=== PATIENT | male | born 1965 | race African-American/Black ===

== ENCOUNTER 2021-10-01 12:47 | Inpatient (IN) | payer OTHER ==
[2021-10-01 14:24] LABS: VENOUS O2 SATURATION 17.9 % (70-80); VENOUS PCO2 55.7 mmHg (38-52); VENOUS PH 7.306 (7.310-7.410)
[2021-10-01 14:25] LABS: BASO % 0.6 % (0-2.0); EOS % 0.4 % (0-4.5); HEMOGLOBIN 11.9 GM/dL (11.7-16.9); LYMPH % 14.9 % (8-40); MCH 25.5 pg (25.7-33.7); MCHC 32.1 g/dl (32.0-35.9); MEAN CELL VOLUME 79.6 fl (80-96); MEAN PLT VOLUME 9.3 fl (7.5-11.1); MONO % 4.4 % (3.8-10.2); NEUT % 79.7 % (42.8-82.8); PLATELET COUNT 217 10^3/uL (134-434); RBC 4.65 M/mm3 (4.00-5.60); RDW 15.8 % (11.9-15.9)
[2021-10-01 14:45] LABS: ALBUMIN 2.8 g/dl (3.4-5.0); BLOOD UREA NITROGEN 28.1 mg/dL (7-18); CALCIUM 9.5 mg/dL (8.5-10.1)
[2021-10-01 14:46] LABS: MAGNESIUM 2.1 mg/dL (1.8-2.4)
[2021-10-01 14:50] LABS: BILIRUBIN,TOTAL 0.8 mg/dL (0.2-1); TOT PROT 7.7 g/dl (6.4-8.2)
[2021-10-01 14:53] LABS: N-TERMINAL BNP 53.3 pg/ml (5-125)
[2021-10-01 14:59] LABS: INR 1.11 (0.83-1.09); PROTHROMBIN TIME (PATIENT) 12.8 SEC (9.7-13.0)
[2021-10-01 15:02] LABS: ACTIVATED PTT 36.2 SECONDS (25.2-36.5)
[2021-10-01] MEDS ORDERED: LACTATED RINGERS SOLUTION 1000 ML INFUS.BAG IV ONE (15:02)
[2021-10-01] MEDS ORDERED: ASPIRIN 81 MG CHEWABLE TABLETS PO ONE (17:54)
[2021-10-01] MEDS ORDERED: ASPIRIN 81 MG CHEWABLE TABLETS ONE (18:00)
[2021-10-01] MEDS ORDERED: SODIUM CHLORIDE 1,000 ML IV SCH (18:30)
[2021-10-01] MEDS ORDERED: ceFAZolin SODIUM 1 GM VIAL ONE (20:13)
[2021-10-01] MEDS ORDERED: amLODIPine BESYLATE 5 MG TABLET (FP) ONE ×2 (20:13→22:57)
[2021-10-01] MEDS: CEFAZOLIN 1 GM in DEXTROSE 5%-WATER - 50 ML IVPB SCH (21:02)
[2021-10-01] MEDS: INSULIN SLIDING SCALE (NOVOLOG) 1 VIAL SQ SCH (21:02)
[2021-10-01] MEDS: amLODIPine BESYLATE 5 MG TABLET (FP) PO SCH (21:02)
[2021-10-01] MEDS ORDERED: amLODIPine BESYLATE 5 MG TABLET (FP) PO ONE (22:55)
[2021-10-02 00:17] VITALS: BMI 39.3
[2021-10-02] MEDS ORDERED: DEXTROSE 5%-WATER - 50 ML IVPB ONE ×3 (02:25→17:04)
[2021-10-02] MEDS ORDERED: ceFAZolin SODIUM 1 GM VIAL ONE ×3 (02:25→17:04)
[2021-10-02] MEDS: CEFAZOLIN 1 GM in DEXTROSE 5%-WATER - 50 ML IVPB SCH ×3 (02:36→17:24)
[2021-10-02] MEDS: INSULIN SLIDING SCALE (NOVOLOG) 1 VIAL SQ SCH ×3 (06:20→17:22)
[2021-10-02 07:35] LABS: BASO % 1.2 % (0-2.0); EOS % 0.8 % (0-4.5); HEMATOCRIT 32.6 % (35.4-49); HEMOGLOBIN 10.9 GM/dL (11.7-16.9); LYMPH % 20.4 % (8-40); MCHC 33.4 g/dl (32.0-35.9); MEAN PLT VOLUME 8.8 fl (7.5-11.1); MONO % 6.5 % (3.8-10.2); NEUT % 71.1 % (42.8-82.8); PLATELET COUNT 184 10^3/uL (134-434); RBC 4.19 M/mm3 (4.00-5.60); RDW 15.2 % (11.9-15.9); WHITE BLOOD COUNT 11.1 K/mm3 (4.0-10.0)
[2021-10-02 08:23] LABS: BLOOD UREA NITROGEN 25.6 mg/dL (7-18)
[2021-10-02 08:24] LABS: ALBUMIN 2.4 g/dl (3.4-5.0); CALCIUM 8.6 mg/dL (8.5-10.1)
[2021-10-02 08:28] LABS: TOT PROT 6.5 g/dl (6.4-8.2)
[2021-10-02 08:29] LABS: BILIRUBIN,TOTAL 0.7 mg/dL (0.2-1)
[2021-10-02 08:40] LABS: CREATININE 1.1 mg/dL (0.55-1.3)
[2021-10-02] MEDS ORDERED: FLU VACC QS2021-22(6MOS UP)/PF 60 MCG/0.5 ML SYRINGE IM ONE (10:00)
[2021-10-02] MEDS: amLODIPine BESYLATE 5 MG TABLET (FP) PO SCH (10:43)
[2021-10-02] MEDS ORDERED: TAMSULOSIN HCL 0.4 MG CAP PO SCH (13:04)
[2021-10-02] MEDS ORDERED: ACETAMINOPHEN 325 MG TABLET (FP) PO ONE (14:00)
[2021-10-02] MEDS ORDERED: SODIUM CHLORIDE 1,000 ML IV SCH (18:30)
[2021-10-02] MEDS ORDERED: SODIUM CHLORIDE 0.45% 1,000 ML IV SCH (18:45)
[2021-10-02] MEDS: HEPARIN NA (PORCINE) 5,000 UNITS/ML 1ML VIAL SQ SCH (21:58)
[2021-10-02] MEDS: ACETAMINOPHEN 325 MG TABLET (FP) PO PRN (21:58)
[2021-10-03] MEDS ORDERED: ceFAZolin SODIUM 1 GM VIAL ONE ×2 (01:19→09:23)
[2021-10-03] MEDS ORDERED: DEXTROSE 5%-WATER - 50 ML IVPB ONE ×2 (01:20→09:23)
[2021-10-03] MEDS: CEFAZOLIN 1 GM in DEXTROSE 5%-WATER - 50 ML IVPB SCH ×2 (01:27→09:38)
[2021-10-03] MEDS: INSULIN SLIDING SCALE (NOVOLOG) 1 VIAL SQ SCH ×3 (06:08→18:22)
[2021-10-03 07:32] LABS: BASO % 0.9 % (0-2.0); EOS % 0.9 % (0-4.5); HEMATOCRIT 33.2 % (35.4-49); HEMOGLOBIN 10.9 GM/dL (11.7-16.9); LYMPH % 23.3 % (8-40); MCH 25.8 pg (25.7-33.7); MCHC 32.9 g/dl (32.0-35.9); MEAN CELL VOLUME 78.6 fl (80-96); MEAN PLT VOLUME 9.2 fl (7.5-11.1); MONO % 7.2 % (3.8-10.2); NEUT % 67.7 % (42.8-82.8); PLATELET COUNT 196 10^3/uL (134-434); RBC 4.22 M/mm3 (4.00-5.60); RDW 15.2 % (11.9-15.9); WHITE BLOOD COUNT 8.7 K/mm3 (4.0-10.0)
[2021-10-03 08:02] LABS: CALCIUM 8.7 mg/dL (8.5-10.1)
[2021-10-03 08:03] LABS: ALBUMIN 2.3 g/dl (3.4-5.0); BLOOD UREA NITROGEN 20.3 mg/dL (7-18)
[2021-10-03 08:06] LABS: CREATININE 0.9 mg/dL (0.55-1.3)
[2021-10-03 08:07] LABS: BILIRUBIN,TOTAL 0.7 mg/dL (0.2-1); TOT PROT 6.6 g/dl (6.4-8.2)
[2021-10-03] MEDS: amLODIPine BESYLATE 5 MG TABLET (FP) PO SCH (09:36)
[2021-10-03] MEDS: HEPARIN NA (PORCINE) 5,000 UNITS/ML 1ML VIAL SQ SCH (09:37)
[2021-10-03] MEDS: ACETAMINOPHEN 325 MG TABLET (FP) PO PRN (09:37)
[2021-10-03] MEDS ORDERED: ACETAMINOPHEN/CAFFEINE/BUTALBITAL 1 TAB PO ONE (11:00)
[2021-10-03 11:10] LABS: ARTERIAL BLD GAS O2 SATURATION 95.4 % (95-98); ARTERIAL BLOOD GAS BASE EXCESS 0.2 mmol/L (-2-2); ARTERIAL BLOOD GAS PO2 74.8 mmHg (80-100); ARTERIAL BLOOD GAS pH 7.429 (7.350-7.450)
[2021-10-03 11:11] LABS: ALLENS TEST POSITIVE
[2021-10-03] MEDS ORDERED: metoPROLOL SUCCINATE 25 MG TAB.SR.24H (FP) PO SCH (12:00)
[2021-10-03 15:48] VITALS: BP 151/87; PULSE 87; TEMP 98.5
[2021-10-03] MEDS ORDERED: AMOX TR/POT CLAV 875MG/125MG TABLETS (FP) PO SCH (17:30)
[2021-10-03] MEDS ORDERED: ATORVASTATIN CA 20 MG TABLET (FP) PO SCH (22:00)
== END 2021-10-03 19:50 | disposition home or self-care (01) | DRG 139 ==
LOC: JER 12:47 → JERBED 17:54 → J4W 23:19
PROVIDERS: ADMIT Internal Medicine; ATTEND Nurse Practitioner Family
DX: J18.9 Pneumonia, unspecified organism (principal); I11.0 Hypertensive heart disease with heart failure; N17.9 Acute kidney failure, unspecified; E11.65 Type 2 diabetes mellitus with hyperglycemia; L03.311 Cellulitis of abdominal wall; E66.01 Morbid (severe) obesity due to excess calories; E78.5 Hyperlipidemia, unspecified; G47.33 Obstructive sleep apnea (adult) (pediatric); J98.11 Atelectasis; Z68.39 Body mass index [BMI] 39.0-39.9, adult
CPT/HCPCS: 0241U-QW; 36415; 36600; 71045-TC-FY; 71275-TC; 76775-TC; 80048; 80053; 80061; 82550; 82570; 82803; 82962; 83036; 83735; 83880; 84156; 84300; 84443; 84484; 84540; 85025; 85379; 85610; 85730; 87040; 90686; 93306-TC; 93970-TC; 97116-GP; 97161-GP; 99285-25; G0008; J1644

== ENCOUNTER 2021-10-20 21:38 | Emergency (ER) | payer OTHER ==
[2021-10-20 21:46] VITALS: TEMP 97.7; BMI 39.1
[2021-10-20 23:53] LABS: BASO % 0.8 % (0-2.0); EOS % 0.6 % (0-4.5); HEMATOCRIT 32.3 % (35.4-49); HEMOGLOBIN 10.7 GM/dL (11.7-16.9); MCH 25.8 pg (25.7-33.7); MCHC 33.3 g/dl (32.0-35.9); MEAN CELL VOLUME 77.5 fl (80-96); MONO % 4.8 % (3.8-10.2); NEUT % 77.8 % (42.8-82.8); PLATELET COUNT 159 10^3/uL (134-434); RBC 4.16 M/mm3 (4.00-5.60); RDW 15.9 % (11.9-15.9); WHITE BLOOD COUNT 10.8 K/mm3 (4.0-10.0)
[2021-10-21 00:15] LABS: CALCIUM 8.9 mg/dL (8.5-10.1)
[2021-10-21 00:16] LABS: ALBUMIN 2.7 g/dl (3.4-5.0); BLOOD UREA NITROGEN 16.4 mg/dL (7-18)
[2021-10-21 00:19] LABS: CREATININE 1.1 mg/dL (0.55-1.3)
[2021-10-21 00:20] LABS: BILIRUBIN,TOTAL 0.5 mg/dL (0.2-1); TOT PROT 6.8 g/dl (6.4-8.2)
[2021-10-21 04:28] LABS: EPI CELLS 4 /uL (0-25.1); HYALINE CASTS 2 /uL (0-3.1); URINE APPEARANCE CLEAR; URINE BACTERIA 2 /uL (0-1359); URINE BILIRUBIN NEGATIVE (NEGATIVE); URINE COLOR YELLOW; URINE GLUCOSE (UA) TRACE (NEGATIVE); URINE KETONE NEGATIVE (NEGATIVE); URINE LEUK ESTERASE NEGATIVE (NEGATIVE); URINE NITRITE NEGATIVE (NEGATIVE); URINE PROTEIN 3+ (NEGATIVE); URINE RBC 16 /uL (0-23.9); URINE WBC 5 /uL (0-25.8)
[2021-10-21 05:31] VITALS: BP 155/90; PULSE 72
== END 2021-10-21 05:30 | disposition home or self-care (01) ==
LOC: JER 21:38
DX: R42 Dizziness and giddiness (principal)
CPT/HCPCS: 36415; 80053; 81003; 84484; 85025; 87086; 93005; 93010; 99284-25

== ENCOUNTER 2022-06-16 21:14 | Observation (INO) | payer OTHER ==
[2022-06-16 22:53] LABS: BASO % 0.7 % (0-2.0); EOS % 1.4 % (0-4.5); HEMATOCRIT 31.1 % (35.4-49); HEMOGLOBIN 10.4 GM/dL (11.7-16.9); LYMPH % 20.8 % (8-40); MCH 26.3 pg (25.7-33.7); MCHC 33.4 g/dl (32.0-35.9); MEAN CELL VOLUME 78.9 fl (80-96); MEAN PLT VOLUME 9.1 fl (7.5-11.1); MONO % 6.3 % (3.8-10.2); NEUT % 70.8 % (42.8-82.8); PLATELET COUNT 151 10^3/uL (134-434); RBC 3.94 M/mm3 (4.00-5.60); RDW 16.7 % (11.9-15.9); WHITE BLOOD COUNT 8.9 K/mm3 (4.0-10.0)
[2022-06-16 23:15] LABS: CALCIUM 8.8 mg/dL (8.5-10.1)
[2022-06-16 23:16] LABS: ALBUMIN 2.6 g/dl (3.4-5.0); BLOOD UREA NITROGEN 14.5 mg/dL (7-18)
[2022-06-16 23:19] LABS: CREATININE 1.1 mg/dL (0.55-1.3)
[2022-06-16 23:20] LABS: BILIRUBIN,TOTAL 0.6 mg/dL (0.2-1); TOT PROT 6.5 g/dl (6.4-8.2)
[2022-06-16] MEDS ORDERED: ASPIRIN 325 MG TABLET PO ONE (23:53)
[2022-06-17] MEDS ORDERED: ASPIRIN 325 MG TABLET ONE (00:02)
[2022-06-17 01:41] LABS: EPI CELLS 5 /uL (0-25.1); HYALINE CASTS 2 /uL (0-3.1); PH,URINE 5.5 (5.0-8.0); URINE APPEARANCE CLEAR; URINE BACTERIA 34 /uL (0-1359); URINE BILIRUBIN NEGATIVE (NEGATIVE); URINE COLOR YELLOW; URINE GLUCOSE (UA) NEGATIVE (NEGATIVE); URINE KETONE NEGATIVE (NEGATIVE); URINE LEUK ESTERASE NEGATIVE (NEGATIVE); URINE NITRITE NEGATIVE (NEGATIVE); URINE PROTEIN 3+ (NEGATIVE); URINE RBC 19 /uL (0-23.9); URINE WBC 5 /uL (0-25.8)
[2022-06-17] MEDS ORDERED: DEXTROSE 50%-WATER 25 GM/50 ML DISP.SYRIN IVPUSH PRN (05:18)
[2022-06-17 07:24] LABS: HEMATOCRIT 29.3 % (35.4-49); HEMOGLOBIN 9.8 GM/dL (11.7-16.9); MCH 26.2 pg (25.7-33.7); MCHC 33.3 g/dl (32.0-35.9); MEAN CELL VOLUME 78.6 fl (80-96); MEAN PLT VOLUME 9.6 fl (7.5-11.1); PLATELET COUNT 150 10^3/uL (134-434); RBC 3.73 M/mm3 (4.00-5.60); RDW 17.5 % (11.9-15.9); WHITE BLOOD COUNT 9.7 K/mm3 (4.0-10.0)
[2022-06-17] MEDS: INSULIN SLIDING SCALE (NOVOLOG) 1 VIAL SQ SCH ×4 (07:37→22:48)
[2022-06-17] MEDS: LACTATED RINGERS SOLUTION 1,000 ML/1,000 ML INFUS.BAG IV SCH (07:37)
[2022-06-17] MEDS ORDERED: TAMSULOSIN HCL 0.4 MG CAP ONE (07:39)
[2022-06-17 07:43] LABS: BLOOD UREA NITROGEN 15.6 mg/dL (7-18); CALCIUM 8.7 mg/dL (8.5-10.1); MAGNESIUM 1.5 mg/dL (1.8-2.4)
[2022-06-17 07:46] LABS: PHOSPHOROUS 4.4 mg/dL (2.5-4.9)
[2022-06-17] MEDS: TAMSULOSIN HCL 0.4 MG CAP PO SCH (07:48)
[2022-06-17] MEDS: levETIRAcetam 500 MG TABLET (FP) PO SCH (07:48)
[2022-06-17] MEDS ORDERED: ASPIRIN 81 MG CHEWABLE TABLETS ONE (09:42)
[2022-06-17] MEDS ORDERED: ENOXAPARIN NA (PORCINE) 40 MG/0.4 ML DISP.SYRIN SQ ONE (09:42)
[2022-06-17] MEDS ORDERED: MAGNESIUM SULF 50% (8.12 MEQ/2 ML-1 GM VIAL) IVPB ONE (09:43)
[2022-06-17] MEDS: INSULIN (LEVEMIR) 100 UNITS/ML UNITS SQ SCH ×2 (09:46→22:47)
[2022-06-17] MEDS: ASPIRIN 81 MG CHEWABLE TABLETS PO SCH (09:46)
[2022-06-17] MEDS: ENOXAPARIN NA (PORCINE) 40 MG/0.4 ML DISP.SYRIN SQ SCH (09:47)
[2022-06-17] MEDS ORDERED: MAGNESIUM SULF 50% (8.12 MEQ/2 ML-1 GM VIAL) ONE (09:51)
[2022-06-17] MEDS ORDERED: amLODIPine BESYLATE 5 MG TABLET (FP) PO SCH (10:00)
[2022-06-17] MEDS ORDERED: metoPROLOL SUCCINATE 25 MG TAB.SR.24H (FP) PO SCH (10:00)
[2022-06-17 18:14] VITALS: BMI 38.4
[2022-06-18] MEDS: ATORVASTATIN CA 40 MG TABLET (FP) PO SCH ×2 (00:13→22:08)
[2022-06-18] MEDS: levETIRAcetam 500 MG TABLET (FP) PO SCH ×3 (00:13→22:08)
[2022-06-18] MEDS: LACTATED RINGERS SOLUTION 1,000 ML/1,000 ML INFUS.BAG IV SCH (05:59)
[2022-06-18] MEDS: INSULIN SLIDING SCALE (NOVOLOG) 1 VIAL SQ SCH ×4 (06:08→22:08)
[2022-06-18 07:48] LABS: BASO % 0.6 % (0-2.0); EOS % 1.8 % (0-4.5); HEMATOCRIT 29.6 % (35.4-49); HEMOGLOBIN 10.1 GM/dL (11.7-16.9); LYMPH % 35.9 % (8-40); MCHC 34.1 g/dl (32.0-35.9); MEAN CELL VOLUME 79.2 fl (80-96); MEAN PLT VOLUME 9.2 fl (7.5-11.1); MONO % 5.9 % (3.8-10.2); NEUT % 55.8 % (42.8-82.8); PLATELET COUNT 133 10^3/uL (134-434); RBC 3.73 M/mm3 (4.00-5.60); RDW 17.3 % (11.9-15.9); WHITE BLOOD COUNT 6.8 K/mm3 (4.0-10.0)
[2022-06-18 08:10] LABS: CALCIUM 8.9 mg/dL (8.5-10.1)
[2022-06-18 08:11] LABS: ALBUMIN 2.4 g/dl (3.4-5.0); CREATININE 0.9 mg/dL (0.55-1.3)
[2022-06-18 08:12] LABS: BLOOD UREA NITROGEN 13.5 mg/dL (7-18)
[2022-06-18 08:13] LABS: BILIRUBIN,TOTAL 0.7 mg/dL (0.2-1); TOT PROT 6.2 g/dl (6.4-8.2)
[2022-06-18] MEDS: TAMSULOSIN HCL 0.4 MG CAP PO SCH (09:46)
[2022-06-18] MEDS: INSULIN (LEVEMIR) 100 UNITS/ML UNITS SQ SCH ×2 (09:46→22:08)
[2022-06-18] MEDS: ASPIRIN 81 MG CHEWABLE TABLETS PO SCH (09:47)
[2022-06-18] MEDS: LOSARTAN POTASSIUM 25 MG TABLET PO SCH (09:47)
[2022-06-18] MEDS: amLODIPine BESYLATE 5 MG TABLET (FP) PO SCH (09:47)
[2022-06-18] MEDS: metoPROLOL SUCCINATE 25 MG TAB.SR.24H (FP) PO SCH (09:47)
[2022-06-18] MEDS: ENOXAPARIN NA (PORCINE) 40 MG/0.4 ML DISP.SYRIN SQ SCH (09:47)
[2022-06-18] MEDS ORDERED: METOPROLOL TARTRATE 5 MG/5 ML VIAL IVPUSH PRN (17:12)
[2022-06-18] MEDS ORDERED: METOPROLOL TARTRATE 5 MG/5 ML VIAL IVPUSH ONE (17:12)
[2022-06-18] MEDS ORDERED: ACETAMINOPHEN 325 MG TABLET (FP) PO PRN (18:26)
[2022-06-18] MEDS ORDERED: ACETAMINOPHEN 1000 MG/100 ML BAG IVPB PRN (18:26)
[2022-06-19 02:43] VITALS: RESP 18
[2022-06-19] MEDS ORDERED: hydrALAZINE HCL 10 MG TABLET PO ONE (06:37)
[2022-06-19] MEDS: INSULIN SLIDING SCALE (NOVOLOG) 1 VIAL SQ SCH ×4 (06:50→22:19)
[2022-06-19 07:29] LABS: BASO % 0.7 % (0-2.0); EOS % 1.8 % (0-4.5); HEMATOCRIT 31.3 % (35.4-49); HEMOGLOBIN 10.4 GM/dL (11.7-16.9); LYMPH % 38.7 % (8-40); MCH 26.1 pg (25.7-33.7); MCHC 33.3 g/dl (32.0-35.9); MEAN CELL VOLUME 78.4 fl (80-96); MEAN PLT VOLUME 9.6 fl (7.5-11.1); MONO % 5.7 % (3.8-10.2); NEUT % 53.1 % (42.8-82.8); PLATELET COUNT 155 10^3/uL (134-434); RBC 3.99 M/mm3 (4.00-5.60); RDW 16.9 % (11.9-15.9); WHITE BLOOD COUNT 7.3 K/mm3 (4.0-10.0)
[2022-06-19 07:51] LABS: CALCIUM 8.8 mg/dL (8.5-10.1)
[2022-06-19 07:52] LABS: ALBUMIN 2.6 g/dl (3.4-5.0); BLOOD UREA NITROGEN 14.4 mg/dL (7-18); MAGNESIUM 1.6 mg/dL (1.8-2.4)
[2022-06-19 07:55] LABS: CREATININE 0.9 mg/dL (0.55-1.3); PHOSPHOROUS 4.1 mg/dL (2.5-4.9)
[2022-06-19 07:56] LABS: TOT PROT 6.5 g/dl (6.4-8.2)
[2022-06-19 08:00] LABS: BILIRUBIN,TOTAL 0.9 mg/dL (0.2-1)
[2022-06-19] MEDS: amLODIPine BESYLATE 5 MG TABLET (FP) PO SCH (09:35)
[2022-06-19] MEDS: TAMSULOSIN HCL 0.4 MG CAP PO SCH (09:35)
[2022-06-19] MEDS: INSULIN (LEVEMIR) 100 UNITS/ML UNITS SQ SCH ×2 (09:36→22:19)
[2022-06-19] MEDS: metoPROLOL SUCCINATE 25 MG TAB.SR.24H (FP) PO SCH (09:36)
[2022-06-19] MEDS: LOSARTAN POTASSIUM 25 MG TABLET PO SCH (09:36)
[2022-06-19] MEDS: ASPIRIN 81 MG CHEWABLE TABLETS PO SCH (09:36)
[2022-06-19] MEDS: levETIRAcetam 500 MG TABLET (FP) PO SCH ×2 (09:36→22:13)
[2022-06-19] MEDS: ENOXAPARIN NA (PORCINE) 40 MG/0.4 ML DISP.SYRIN SQ SCH (09:36)
[2022-06-19] MEDS ORDERED: amLODIPine BESYLATE 5 MG TABLET (FP) PO ONE (10:09)
[2022-06-19] MEDS ORDERED: metoPROLOL SUCCINATE 25 MG TAB.SR.24H (FP) PO ONE (10:10)
[2022-06-19] MEDS ORDERED: MAGNESIUM SULF 50% (8.12 MEQ/2 ML-1 GM VIAL) IVPB ONE (10:21)
[2022-06-19] MEDS: GLYCERIN 1 RECTAL SUPPOSITORY, ADULT RC ONE ×2 (14:08→15:58)
[2022-06-19] MEDS ORDERED: MAGNESIUM 2GM/50ML STERILE WATER IVPB IVPB ONE (14:21)
[2022-06-19] MEDS ORDERED: LOSARTAN POTASSIUM 50 MG TABLET PO ONE ×2 (14:21→14:22)
[2022-06-19] MEDS: ATORVASTATIN CA 40 MG TABLET (FP) PO SCH (22:13)
[2022-06-20] MEDS: INSULIN SLIDING SCALE (NOVOLOG) 1 VIAL SQ SCH ×2 (06:15→11:27)
[2022-06-20] MEDS ORDERED: METOPROLOL TARTRATE 5 MG/5 ML VIAL IVPUSH ONE (06:25)
[2022-06-20] MEDS ORDERED: hydrALAZINE HCL 20 MG/ML VIAL IVPUSH ONE (06:50)
[2022-06-20 08:59] VITALS: BP 140/79; PULSE 86; TEMP 97.6
[2022-06-20] MEDS: levETIRAcetam 500 MG TABLET (FP) PO SCH (09:51)
[2022-06-20] MEDS: TAMSULOSIN HCL 0.4 MG CAP PO SCH (09:52)
[2022-06-20] MEDS: ENOXAPARIN NA (PORCINE) 40 MG/0.4 ML DISP.SYRIN SQ SCH (09:52)
[2022-06-20] MEDS: ASPIRIN 81 MG CHEWABLE TABLETS PO SCH (09:52)
[2022-06-20] MEDS: INSULIN (LEVEMIR) 100 UNITS/ML UNITS SQ SCH (09:52)
[2022-06-20] MEDS ORDERED: LOSARTAN POTASSIUM 50 MG TABLET PO SCH ×2 (10:00→22:00)
[2022-06-20] MEDS ORDERED: amLODIPine BESYLATE 5 MG TABLET (FP) PO SCH (10:00)
[2022-06-20] MEDS ORDERED: metoPROLOL SUCCINATE 25 MG TAB.SR.24H (FP) PO SCH (10:00)
[2022-06-20] MEDS ORDERED: LOSARTAN POTASSIUM 25 MG TABLET PO SCH (10:00)
== END 2022-06-20 14:37 | disposition home or self-care (01) ==
LOC: JER 21:14 → JERBED 06-17 00:09 → J4W 06-17 18:24
PROVIDERS: ADMIT Internal Medicine; ATTEND Internal Medicine
PROC: 3E033NZ Introduction of Analgesics, Hypnotics, Sedatives into Peripheral Vein, Percutaneous Approach (ICD-10-PCS; principal; 2022-06-17)
PROC: 3E023GC Introduction of Other Therapeutic Substance into Muscle, Percutaneous Approach (ICD-10-PCS; 2022-06-17)
PROC: 3E033GC Introduction of Other Therapeutic Substance into Peripheral Vein, Percutaneous Approach (ICD-10-PCS; 2022-06-17)
PROC: 3E013VG Introduction of Insulin into Subcutaneous Tissue, Percutaneous Approach (ICD-10-PCS; 2022-06-17)
PROC: 3E0337Z Introduction of Electrolytic and Water Balance Substance into Peripheral Vein, Percutaneous Approach (ICD-10-PCS; 2022-06-17)
DX: R55 Syncope and collapse (principal); R19.7 Diarrhea, unspecified; D50.9 Iron deficiency anemia, unspecified; R26.81 Unsteadiness on feet; E11.9 Type 2 diabetes mellitus without complications; I10 Essential (primary) hypertension; Z29.8 Encounter for other specified prophylactic measures; R42 Dizziness and giddiness; R53.1 Weakness; R47.81 Slurred speech; G45.9 Transient cerebral ischemic attack, unspecified; Z88.8 Allergy status to other drugs, medicaments and biological substances; E66.8 Other obesity; Z68.38 Body mass index [BMI] 38.0-38.9, adult
CPT/HCPCS: 36415; 70450-TC; 70551-TC; 71046-TC-FY; 72125-TC; 74177-TC; 80048; 80053; 81003; 82550; 82607; 82728; 82962; 83036; 83540; 83550; 83735; 84100; 84443; 84484; 85025; 85027; 85045; 87086; 93005; 93010; 93306-TC; 93880-TC; 95816; 96361; 96372; 96374; 96375; 96376; 97116-GP; 97162-GP; 99285-25; C9803-CS; G0378; Q9967; U0003; U0005

== ENCOUNTER 2022-11-14 16:28 | Observation (INO) | payer OTHER ==
[2022-11-14 17:04] VITALS: BMI 36.9
[2022-11-14 19:10] LABS: BASO % 0.6 % (0-2.0); EOS % 0.3 % (0-4.5); HEMATOCRIT 35.8 % (35.4-49); HEMOGLOBIN 11.4 GM/dL (11.7-16.9); LYMPH % 23.5 % (8-40); MCH 26.2 pg (25.7-33.7); MCHC 31.8 g/dl (32.0-35.9); MEAN CELL VOLUME 82.3 fl (80-96); MEAN PLT VOLUME 10.4 fl (7.5-11.1); MONO % 5.6 % (3.8-10.2); PLATELET COUNT 156 10^3/uL (134-434); RBC 4.35 M/mm3 (4.00-5.60); RDW 15.5 % (11.9-15.9)
[2022-11-14 19:46] LABS: POTASSIUM 4.2 mmol/L (3.5-5.1)
[2022-11-14 19:50] LABS: ALBUMIN 2.7 g/dl (3.4-5.0); BLOOD UREA NITROGEN 15.5 mg/dL (7-18); CALCIUM 8.8 mg/dL (8.5-10.1); MAGNESIUM 1.9 mg/dL (1.8-2.4)
[2022-11-14 19:53] LABS: CREATININE 1.3 mg/dL (0.55-1.3)
[2022-11-14 19:54] LABS: TOT PROT 6.1 g/dl (6.4-8.2)
[2022-11-14 19:55] LABS: BILIRUBIN,TOTAL 0.8 mg/dL (0.2-1)
[2022-11-15 08:19] LABS: HEMATOCRIT 35.4 % (35.4-49); HEMOGLOBIN 11.3 GM/dL (11.7-16.9); MCH 26.4 pg (25.7-33.7); MCHC 31.8 g/dl (32.0-35.9); MEAN CELL VOLUME 82.9 fl (80-96); MEAN PLT VOLUME 10.6 fl (7.5-11.1); PLATELET COUNT 148 10^3/uL (134-434); RBC 4.27 M/mm3 (4.00-5.60); RDW 15.1 % (11.9-15.9); WHITE BLOOD COUNT 9.2 K/mm3 (4.0-10.0)
[2022-11-15] MEDS: TAMSULOSIN HCL 0.4 MG CAP PO SCH (08:38)
[2022-11-15 08:47] LABS: ALBUMIN 2.4 g/dl (3.4-5.0); BLOOD UREA NITROGEN 15.4 mg/dL (7-18); CALCIUM 8.9 mg/dL (8.5-10.1); MAGNESIUM 1.9 mg/dL (1.8-2.4)
[2022-11-15 08:50] LABS: CREATININE 1.1 mg/dL (0.55-1.3); PHOSPHOROUS 3.9 mg/dL (2.5-4.9)
[2022-11-15 08:52] LABS: BILIRUBIN,TOTAL 1.1 mg/dL (0.2-1); TOT PROT 5.9 g/dl (6.4-8.2)
[2022-11-15 09:15] LABS: CHOLESTEROL 144 mg/dL (50-200)
[2022-11-15 09:17] LABS: LDL CHOLESTEROL (ONLY SJRH) 96 mg/dL (5-100)
[2022-11-15 09:18] LABS: HDL CHOLESTEROL 42 mg/dL (40-60)
[2022-11-15] MEDS: amLODIPine BESYLATE 10 MG TABLET (FP) PO SCH (10:51)
[2022-11-15] MEDS: LOSARTAN POTASSIUM 50 MG TABLET PO SCH (10:51)
[2022-11-15] MEDS: ASPIRIN 81 MG CHEWABLE TABLETS PO SCH (10:51)
[2022-11-15] MEDS: INSULIN (LEVEMIR) 100 UNITS/ML UNITS SQ SCH (10:51)
[2022-11-15] MEDS: ENOXAPARIN NA (PORCINE) 40 MG/0.4 ML DISP.SYRIN SQ SCH (10:52)
[2022-11-15] MEDS: INSULIN SLIDING SCALE (NOVOLOG) 1 VIAL SQ SCH ×3 (11:31→22:04)
[2022-11-15 14:35] LABS: EPI CELLS 9 /uL (0-25.1); HYALINE CASTS 1 /uL (0-3.1); URINE APPEARANCE CLEAR; URINE BACTERIA 4 /uL (0-1359); URINE BILIRUBIN NEGATIVE (NEGATIVE); URINE COLOR YELLOW; URINE GLUCOSE (UA) NEGATIVE (NEGATIVE); URINE KETONE NEGATIVE (NEGATIVE); URINE LEUK ESTERASE NEGATIVE (NEGATIVE); URINE NITRITE NEGATIVE (NEGATIVE); URINE PROTEIN 3+ (NEGATIVE); URINE RBC 72 /uL (0-23.9); URINE WBC 8 /uL (0-25.8)
[2022-11-15] MEDS ORDERED: ATORVASTATIN CA 40 MG TABLET (FP) PO SCH (22:00)
[2022-11-15] MEDS ORDERED: metoPROLOL SUCCINATE 25 MG TAB.SR.24H (FP) PO SCH (22:00)
[2022-11-16] MEDS: INSULIN SLIDING SCALE (NOVOLOG) 1 VIAL SQ SCH ×3 (06:36→17:29)
[2022-11-16] MEDS: TAMSULOSIN HCL 0.4 MG CAP PO SCH (08:22)
[2022-11-16 08:27] LABS: BASO % 0.8 % (0-2.0); EOS % 0.7 % (0-4.5); HEMATOCRIT 33.8 % (35.4-49); LYMPH % 26.4 % (8-40); MCH 26.4 pg (25.7-33.7); MCHC 32.6 g/dl (32.0-35.9); MEAN CELL VOLUME 80.9 fl (80-96); MEAN PLT VOLUME 10.1 fl (7.5-11.1); MONO % 5.5 % (3.8-10.2); NEUT % 66.6 % (42.8-82.8); PLATELET COUNT 149 10^3/uL (134-434); RBC 4.17 M/mm3 (4.00-5.60); RDW 15.2 % (11.9-15.9); WHITE BLOOD COUNT 8.7 K/mm3 (4.0-10.0)
[2022-11-16 08:50] LABS: POTASSIUM 4.3 mmol/L (3.5-5.1)
[2022-11-16 09:01] LABS: ALBUMIN 2.4 g/dl (3.4-5.0); BLOOD UREA NITROGEN 18.3 mg/dL (7-18); CALCIUM 9.1 mg/dL (8.5-10.1)
[2022-11-16 09:03] LABS: CREATININE 1.2 mg/dL (0.55-1.3)
[2022-11-16 09:05] LABS: TOT PROT 5.6 g/dl (6.4-8.2)
[2022-11-16] MEDS: amLODIPine BESYLATE 10 MG TABLET (FP) PO SCH (10:58)
[2022-11-16] MEDS: ASPIRIN 81 MG CHEWABLE TABLETS PO SCH (10:58)
[2022-11-16] MEDS: ENOXAPARIN NA (PORCINE) 40 MG/0.4 ML DISP.SYRIN SQ SCH (10:58)
[2022-11-16] MEDS: LOSARTAN POTASSIUM 50 MG TABLET PO SCH (10:58)
[2022-11-16] MEDS: INSULIN (LEVEMIR) 100 UNITS/ML UNITS SQ SCH (10:59)
[2022-11-16 11:22] VITALS: PULSE 66
[2022-11-16 15:19] VITALS: BP 170/96; RESP 71; TEMP 98.9
== END 2022-11-16 18:31 | disposition home or self-care (01) ==
LOC: JER 16:28 → JERBED 21:24 → J4W 11-15 03:15
PROVIDERS: ADMIT Internal Medicine; ATTEND Internal Medicine
PROC: 3E023GC Introduction of Other Therapeutic Substance into Muscle, Percutaneous Approach (ICD-10-PCS; principal; 2022-11-14)
PROC: 3E013VG Introduction of Insulin into Subcutaneous Tissue, Percutaneous Approach (ICD-10-PCS; 2022-11-14)
DX: I47.1 Supraventricular tachycardia (principal); I47.9 Paroxysmal tachycardia, unspecified; G45.9 Transient cerebral ischemic attack, unspecified; E11.9 Type 2 diabetes mellitus without complications; I10 Essential (primary) hypertension; E78.5 Hyperlipidemia, unspecified; E66.8 Other obesity; Z68.36 Body mass index [BMI] 36.0-36.9, adult; Z87.891 Personal history of nicotine dependence; R29.818 Other symptoms and signs involving the nervous system
CPT/HCPCS: 36415; 71045-TC-FY; 80053; 80061; 81003; 82962; 83036; 83735; 84100; 84439; 84443; 84484; 85025; 85027; 93005; 93010; 93306-TC; 96372; 99285-25; G0378

== ENCOUNTER 2022-11-22 15:02 | Observation (INO) | payer OTHER ==
[2022-11-22 15:59] VITALS: BMI 36.9
[2022-11-22 16:13] LABS: BASO % 0.5 % (0-2.0); EOS % 0.3 % (0-4.5); HEMATOCRIT 33.1 % (35.4-49); HEMOGLOBIN 10.7 GM/dL (11.7-16.9); LYMPH % 22.2 % (8-40); MCH 26.5 pg (25.7-33.7); MCHC 32.3 g/dl (32.0-35.9); MEAN CELL VOLUME 81.9 fl (80-96); MEAN PLT VOLUME 10.1 fl (7.5-11.1); MONO % 5.6 % (3.8-10.2); NEUT % 71.4 % (42.8-82.8); PLATELET COUNT 155 10^3/uL (134-434); RBC 4.04 M/mm3 (4.00-5.60); RDW 15.4 % (11.9-15.9); WHITE BLOOD COUNT 9.1 K/mm3 (4.0-10.0)
[2022-11-22 16:18] LABS: INR 1.07 (0.83-1.09); PROTHROMBIN TIME (PATIENT) 12.4 SEC (9.7-13.0)
[2022-11-22 16:38] LABS: POTASSIUM 4.3 mmol/L (3.5-5.1)
[2022-11-22 16:40] LABS: CALCIUM 9.2 mg/dL (8.5-10.1)
[2022-11-22 16:41] LABS: ALBUMIN 2.8 g/dl (3.4-5.0); MAGNESIUM 1.7 mg/dL (1.8-2.4)
[2022-11-22 16:44] LABS: CREATININE 1.5 mg/dL (0.55-1.3)
[2022-11-22 16:45] LABS: BILIRUBIN,TOTAL 0.8 mg/dL (0.2-1); TOT PROT 6.4 g/dl (6.4-8.2)
[2022-11-22 16:49] LABS: N-TERMINAL BNP 58.4 pg/ml (5-125)
[2022-11-22] MEDS ORDERED: SODIUM CHLORIDE 0.9% 500 ML INFUS.BAG IV ONE (19:36)
[2022-11-22 20:02] VITALS: RESP 18
[2022-11-22] MEDS ORDERED: amLODIPine BESYLATE 5 MG TABLET (FP) PO ONE (21:44)
[2022-11-22] MEDS ORDERED: SODIUM CHLORIDE 0.45% 1,000 ML IV SCH (21:45)
[2022-11-22] MEDS ORDERED: metoPROLOL SUCCINATE 25 MG TAB.SR.24H (FP) PO ONE ×2 (21:49→22:21)
[2022-11-22] MEDS ORDERED: INSULIN SLIDING SCALE (NOVOLOG) 1 VIAL SQ SCH ×2 (22:00)
[2022-11-22] MEDS: ATORVASTATIN CA 40 MG TABLET (FP) PO SCH (22:17)
[2022-11-22] MEDS ORDERED: amLODIPine BESYLATE 5 MG TABLET (FP) ONE (22:21)
[2022-11-22] MEDS ORDERED: ATORVASTATIN CA 40 MG TABLET (FP) ONE (22:21)
[2022-11-22 22:45] LABS: EPI CELLS 10 /uL (0-25.1); HYALINE CASTS 4 /uL (0-3.1); PH,URINE 5.5 (5.0-8.0); URINE APPEARANCE CLEAR; URINE BACTERIA 2 /uL (0-1359); URINE BILIRUBIN NEGATIVE (NEGATIVE); URINE COLOR YELLOW; URINE GLUCOSE (UA) NEGATIVE (NEGATIVE); URINE KETONE NEGATIVE (NEGATIVE); URINE LEUK ESTERASE NEGATIVE (NEGATIVE); URINE NITRITE NEGATIVE (NEGATIVE); URINE PROTEIN 3+ (NEGATIVE); URINE RBC 13 /uL (0-23.9); URINE WBC 9 /uL (0-25.8)
[2022-11-23] MEDS: INSULIN SLIDING SCALE (NOVOLOG) 1 VIAL SQ SCH ×3 (06:35→17:23)
[2022-11-23] MEDS: HEPARIN NA (PORCINE) 5,000 UNITS/ML 1ML VIAL SQ SCH ×3 (06:55→23:13)
[2022-11-23 07:48] LABS: HEMATOCRIT 32.5 % (35.4-49); HEMOGLOBIN 10.7 GM/dL (11.7-16.9); MCH 26.7 pg (25.7-33.7); MCHC 32.9 g/dl (32.0-35.9); MEAN CELL VOLUME 81.1 fl (80-96); MEAN PLT VOLUME 10.3 fl (7.5-11.1); PLATELET COUNT 155 10^3/uL (134-434); RBC 4.01 M/mm3 (4.00-5.60); RDW 15.5 % (11.9-15.9); WHITE BLOOD COUNT 10.9 K/mm3 (4.0-10.0)
[2022-11-23] MEDS ORDERED: SODIUM CHLORIDE 0.45% 1,000 ML IV SCH (08:00)
[2022-11-23 08:11] LABS: POTASSIUM 4.4 mmol/L (3.5-5.1)
[2022-11-23 08:14] LABS: CALCIUM 9.2 mg/dL (8.5-10.1)
[2022-11-23 08:15] LABS: ALBUMIN 2.7 g/dl (3.4-5.0); MAGNESIUM 1.7 mg/dL (1.8-2.4)
[2022-11-23 08:18] LABS: CREATININE 1.2 mg/dL (0.55-1.3); PHOSPHOROUS 3.8 mg/dL (2.5-4.9)
[2022-11-23 08:19] LABS: BILIRUBIN,TOTAL 0.8 mg/dL (0.2-1); TOT PROT 6.2 g/dl (6.4-8.2)
[2022-11-23] MEDS ORDERED: TAMSULOSIN HCL 0.4 MG CAP PO SCH (08:30)
[2022-11-23] MEDS: amLODIPine BESYLATE 10 MG TABLET (FP) PO SCH (09:54)
[2022-11-23] MEDS ORDERED: ASPIRIN 81 MG CHEWABLE TABLETS PO SCH (10:00)
[2022-11-23] MEDS: INSULIN (LEVEMIR) 100 UNITS/ML UNITS SQ SCH (10:30)
[2022-11-23] MEDS ORDERED: LOSARTAN POTASSIUM 50 MG TABLET PO SCH ×2 (14:00→14:25)
[2022-11-23] MEDS: ATORVASTATIN CA 40 MG TABLET (FP) PO SCH (23:15)
[2022-11-24] MEDS: HEPARIN NA (PORCINE) 5,000 UNITS/ML 1ML VIAL SQ SCH ×2 (06:31→13:01)
[2022-11-24] MEDS: INSULIN SLIDING SCALE (NOVOLOG) 1 VIAL SQ SCH ×3 (06:32→11:43)
[2022-11-24 08:29] LABS: HEMATOCRIT 34.3 % (35.4-49); HEMOGLOBIN 11.1 GM/dL (11.7-16.9); MCH 26.5 pg (25.7-33.7); MCHC 32.4 g/dl (32.0-35.9); MEAN CELL VOLUME 81.6 fl (80-96); MEAN PLT VOLUME 10.4 fl (7.5-11.1); PLATELET COUNT 159 10^3/uL (134-434); RBC 4.21 M/mm3 (4.00-5.60); RDW 15.4 % (11.9-15.9); WHITE BLOOD COUNT 9.1 K/mm3 (4.0-10.0)
[2022-11-24 08:33] LABS: CALCIUM 9.2 mg/dL (8.5-10.1)
[2022-11-24 08:34] LABS: ALBUMIN 2.6 g/dl (3.4-5.0); BLOOD UREA NITROGEN 25.9 mg/dL (7-18); CREATININE 1.2 mg/dL (0.55-1.3); MAGNESIUM 1.7 mg/dL (1.8-2.4); PHOSPHOROUS 3.8 mg/dL (2.5-4.9)
[2022-11-24 08:35] LABS: BILIRUBIN,TOTAL 0.5 mg/dL (0.2-1)
[2022-11-24] MEDS ORDERED: MAGNESIUM 2GM/50ML STERILE WATER IVPB IVPB ONE (09:15)
[2022-11-24] MEDS: INSULIN (LEVEMIR) 100 UNITS/ML UNITS SQ SCH (09:28)
[2022-11-24] MEDS: amLODIPine BESYLATE 10 MG TABLET (FP) PO SCH (09:28)
[2022-11-24] MEDS ORDERED: ASPIRIN COATED 81 MG TABLET.EC PO SCH (10:00)
[2022-11-24 15:03] VITALS: BP 132/71; PULSE 71; TEMP 98.2
== END 2022-11-24 17:30 | disposition home or self-care (01) ==
LOC: JER 15:02 → JERBED 20:06 → J4W 11-23 00:44
PROVIDERS: ADMIT Internal Medicine; ATTEND Internal Medicine
PROC: 3E023GC Introduction of Other Therapeutic Substance into Muscle, Percutaneous Approach (ICD-10-PCS; principal; 2022-11-22)
PROC: 3E033GC Introduction of Other Therapeutic Substance into Peripheral Vein, Percutaneous Approach (ICD-10-PCS; 2022-11-22)
PROC: 3E0337Z Introduction of Electrolytic and Water Balance Substance into Peripheral Vein, Percutaneous Approach (ICD-10-PCS; 2022-11-22)
DX: N17.9 Acute kidney failure, unspecified (principal); J96.22 Acute and chronic respiratory failure with hypercapnia; R29.818 Other symptoms and signs involving the nervous system; I10 Essential (primary) hypertension; E78.5 Hyperlipidemia, unspecified; N40.0 Benign prostatic hyperplasia without lower urinary tract symptoms; E66.8 Other obesity; Z68.36 Body mass index [BMI] 36.0-36.9, adult; E11.69 Type 2 diabetes mellitus with other specified complication; E83.42 Hypomagnesemia; Z91.199 Patient's noncompliance with other medical treatment and regimen due to unspecified reason; Z87.891 Personal history of nicotine dependence
CPT/HCPCS: 36415; 70450-TC; 71045-TC-FY; 76775-TC; 80053; 81003; 82550; 82962; 83036; 83735; 83880; 84100; 84439; 84443; 84484; 85025; 85027; 85610; 86850; 86900; 86901; 87086; 93005; 93010; 94010; 96361; 96372; 96374; 99285-25; G0378; J1644